=== PATIENT | male | born 1970 | race Caucasian/White ===

== ENCOUNTER 2019-05-28 11:51 | Inpatient (IN) | payer BC ==
[2019-05-28] VITALS (19 sets, daily range): BP systolic 75–136; BP diastolic 40–112; Ht 188 cm; Wt 85.9 kg
[~2019-05-28] VITALS: Ht 188 cm; Wt 85.9 kg
[2019-05-28 12:32] LABS: UDS - AMPHET NEGATIVE QUAL (NEGATIVE); UDS - BARB NEGATIVE QUAL (NEGATIVE); UDS - BENZO NEGATIVE QUAL (NEGATIVE); UDS - COCAINE NEGATIVE QUAL (NEGATIVE); UDS - OPIATE NEGATIVE QUAL (NEGATIVE); UDS - PCP NEGATIVE QUAL (NEGATIVE); UDS - THC NEGATIVE QUAL (NEGATIVE)
[2019-05-28 12:38] LABS: BASOPHILS 0.1 % (0-2); EOSINOPHILS 0 % (0-7); HEMATOCRIT 38.8 % (42.0-54.0); HEMOGLOBIN 11.9 g/dL (13.5-17.5); IMMATURE GRANULOCYTES 2.2 % (0-5); LYMPHOCYTES 8.7 % (15-50); MCH 29.8 pg (26.0-34.0); MCHC 30.7 g/dL (31.0-37.0); MCV 97.2 fL (80.0-100.0); MEAN PLATELET VOLUME 8.8 fL (7.4-10.4); MONOCYTES 5.7 % (2-11); NEUTROPHILS 83.3 % (40-80); PLATELET COUNT 207 10x3/uL (130-400); RBC 3.99 10x6/uL (4.20-6.10); RDW 12.8 % (11.5-14.5); WBC 9.1 10x3/uL (4.8-10.8)
[2019-05-28 12:44] LABS: INR 1.65 (0.85-1.17); PROTIME 18.9 SECONDS (11.6-15.0)
[2019-05-28 12:45] LABS: APTT 39.7 SECONDS (22.8-39.4)
[2019-05-28 13:04] LABS: ALBUMIN 2.1 g/dL (3.4-5.0); ALKALINE PHOSPHATASE 58 U/L (46-116); ALT (SGPT) 991 U/L (10-68); CALC OSMOLALITY 275 mosm/kg (275-300); CARBON DIOXIDE 26.1 mmol/L (21.0-32.0); CHLORIDE - SERUM 104 mmol/L (98-107); CKMB 15.1 U/L (0.0-3.6); CREATINE KINASE 344 UL (21-232); GLUCOSE 151 mg/dL (74-106); MAGNESIUM - SERUM 1.9 mg/dL (1.8-2.4); POTASSIUM - SERUM 3.8 mmol/L (3.5-5.1); PROTEIN - SERUM 4.4 g/dL (6.4-8.2); SODIUM 137 mmol/L (136-145); UREA NITROGEN 11 mg/dL (7-18); eGFR NON AFRICAN AMERICAN 84 mL/min (90-120)
[2019-05-28 13:08] LABS: CALCIUM 5.8 mg/dL (8.5-10.1); TROPONIN-I 0.544 ng/mL (0.000-0.060)
--- NOTE | 2019-05-28 13:09 | NUR ---
GET FROM LAB CALLED WITH CRITICAL CALCIUM 5.8, TRIPONIN 0.544, DR. BERGMAN AWARE.
--- NOTE | 2019-05-28 14:27 | NUR ---
BLADDER TEMP PER URINARY CATHETER READING 94.2. PER ADMITTING MD. DR HEALY, NO MEASURES TO INCREASE BODY TEMP AT THIS TIME.
--- NOTE | 2019-05-28 14:28 | NUR ---
PT LYING IN BED, NO SIGNS OF DISTRESS. INTUBATED WITH VENTILATOR IN PLACE. IVS INFUSING ORDERED. PT DOES NOT RESPOND TO PAINFUL STIMULI. PUPILS FIXED AT 6MM, NOT REACTIVE TO LIGHT. SIDE RAILS RAISED X2, FAMILY AT BEDSIDE. WILL CONTINUE TO MONITOR.
[2019-05-28] MEDS ORDERED: NEURONTIN600 MG PO (14:56)
[2019-05-28] MEDS ORDERED: COREG 3.1253.125 MG PO (14:56)
[2019-05-28] MEDS ORDERED: ANDROGEL5 GM TP (14:57)
--- NOTE | 2019-05-28 16:30 | NUR ---
UNABLE TO OBTAIN HISTORY. PATIENT IS UNRESPONSIVE.
--- NOTE | 2019-05-28 16:33 | NUR ---
FAMILY AT BEDSIDE. FAMILY STATED THEY WERE GOING TO GO [facility] BUT NEVER GOT ANYTHING STARTED. COMPOUNDER HELPER AT BEDSIDE.
--- NOTE | 2019-05-28 17:46 | NUR ---
SPBRUNILDA WITH LEE ANN
--- NOTE | 2019-05-28 17:59 | NUR ---
pt was extubated
--- NOTE | 2019-05-28 18:09 | MORECARE ---
CASE MANAGEMENT DISCHARGE SUMMARY PATIENT: HEBER CERVANTES UNIT: [id number] ADM DATE: 05/28/19 AGE: 49 : 70 SEX: M ROOM/BED: D.2310 AUTHOR: VICTOR HUGO,DOC PHYSICIAN: REFERRING PHYSICIAN: LISA HEALY MD DATE OF SERVICE: 05/28/19 Discharge Plan Patient Name: HEBER CERVANTES Facility: [facility]:[place] : 1970 Planned Disposition: Home Anticipated Discharge Date: 05/31/19 Discharge Date: Expected LOS: 3 Initial Reviewer: [email or web address] Initial Review Date: 05/28/2019 Generated: 05/28/19 7:08 pm DCP- Discharge Planning Updated by [email or web address]: Fara Og on 05/28/19 5:[address] DC PLAN: To be determined. ANTICIPATED DC NEEDS: Hospice CM met with patient, his , Trista and his son, Paul to complete initial dc planning assessment. CM educated them on the CM role and verbal consent given by patient to complete assessment. CM verified patient's address, phone number, and emergency contact phone numbers. Patient lives at home with his . He was diagnosed with ALS 2 years ago. He saw his neurologist on 04/26/19 who talked with them about hospice. They had agreed to hospice services but they had not been arranged prior to admission. Results of further testing will determine next steps for dc planning. CM will continue to follow and will assist as needed with dc plans/needs. Fara Og RN, [facility] DCPIA - Discharge Planning Initial Assessment Updated by [email or web address]: Fara Og on 05/28/19 6:03 pm * Is the patient Alert and Oriented? No * How many steps to enter\exit or inside your home? None * PCP Dr. Herzog * [facility] * Preadmission Environment Home with Family * ADLs Partial Dependent * Equipment Cane Rolling Walker * List name and contact numbers for known caregivers / representatives who currently or will assist patient after discharge: Trista Cervantes - - [phone] Paul Ren son - [phone] * Verbal permission to speak to the caregivers and representatives has been obtained from the patient. Yes * Community resources currently utilized None * Additional services required to return to the preadmission environment? Yes * Has this patient been hospitalized within the prior 30 days at any hospital? No Patient Name: HEBER CERVANTES Page 30006 at 1809 All edits/amendments must be made on the electronic document DICTATION DATE: 05/28/191807 JET SKI MECHANIC: MARIAN 05/28/191807 RPT#: [id number] DC DATE: STATUS: ADM IN [facility] [address] [place] [address] END OF REPORT
--- NOTE | 2019-05-28 18:13 | NUR ---
civil engineering design draftsperson office called. they will call me back
--- NOTE | 2019-05-28 18:17 | NUR ---
SPOKE WITH BLAINE WILLIAM
--- NOTE | 2019-05-28 18:22 | NUR ---
GREENHOUSE WORKER STATED HE WOULD DO AN INVESTIGATION AND THEN RELEASE AND WOULD CALL ME BACK
--- NOTE | 2019-05-28 18:23 | NUR ---
FAMILY MEMBER WHEELED TO L&D BY BED SHE IS 23 WEEKS
--- NOTE | 2019-05-28 18:39 | NUR ---
REPORT FROM CHEIKH VICK MEMBER IS OK
--- NOTE | 2019-05-28 18:39 | NUR ---
SPOKE WITH HOME. WILL PAGE PROFILING MACHINE OPERATOR DISPATCH TO COME BLUEPRINTER BODY
--- NOTE | 2019-05-28 18:40 | NUR ---
LEE ANN STATED THEY WILL GET INTOUCH WITH HOME ABOUT TISSUE DONATION
--- NOTE | 2019-05-28 19:18 | NUR ---
fineral home at bedside. patient taken via stretcher
--- NOTE | 2019-05-28 19:57 | MORECARE ---
CASE MANAGEMENT DISCHARGE SUMMARY PATIENT: HEBER CERVANTES UNIT: [id number] ADM DATE: 05/28/19 AGE: 49 : 70 SEX: M ROOM/BED: D.2310 AUTHOR: VICTOR HUGO,DOC PHYSICIAN: REFERRING PHYSICIAN: LISA HEALY MD DATE OF SERVICE: 05/28/19 Discharge Plan Patient Name: HEBER CERVANTES Facility: [facility]:[place] : 1970 Planned Disposition: Home Anticipated Discharge Date: 05/31/19 Discharge Date: 05/28/2019 Expected LOS: 3 Initial Reviewer: [email or web address] Initial Review Date: 05/28/2019 Generated: 05/28/19 8:57 pm DCP- Discharge Planning Updated by [email or web address]: Fara Og on 05/28/19 5:[address] DC PLAN: To be determined. ANTICIPATED DC NEEDS: Hospice CM met with patient, his , Trista and his son, Paul to complete initial dc planning assessment. CM educated them on the CM role and verbal consent given by patient to complete assessment. CM verified patient's address, phone number, and emergency contact phone numbers. Patient lives at home with his . He was diagnosed with ALS 2 years ago. He saw his neurologist on 04/26/19 who talked with them about hospice. They had agreed to hospice services but they had not been arranged prior to admission. Results of further testing will determine next steps for dc planning. CM will continue to follow and will assist as needed with dc plans/needs. Fara Og RN, [facility] DCPIA - Discharge Planning Initial Assessment Updated by [email or web address]: Fara Og on 05/28/19 6:03 pm * Is the patient Alert and Oriented? No * How many steps to enter\exit or inside your home? None * PCP Dr. Herzog * [facility] * Preadmission Environment Home with Family * ADLs Partial Dependent * Equipment Cane Rolling Walker * List name and contact numbers for known caregivers / representatives who currently or will assist patient after discharge: Trista Cervantes - - [phone] Paul Ren son - [phone] * Verbal permission to speak to the caregivers and representatives has been obtained from the patient. Yes * Community resources currently utilized None * Additional services required to return to the preadmission environment? Yes * Has this patient been hospitalized within the prior 30 days at any hospital? No Last DP export: 05/28/19 5:09 p Patient Name: HEBER CERVANTES Page [id number] at 1956 All edits/amendments must be made on the electronic document DICTATION DATE: 05/28/191956 TRANSPORTATION DRIVER: MARIAN 05/28/191956 RPT#: [id number] DC DATE:05/28/19 STATUS: DIS IN [facility] [address] [place] [address] END OF REPORT
== END 2019-05-28 19:34 | DRG 296 ==
LOC: D.ER 11:51 → D.ICU 14:23 → OBSVTIME 14:23 → D.ICU 16:31
PROVIDERS: Family Medicine; ADMIT Internal Medicine Nephrology; ATTEND Internal Medicine Nephrology
PROC: 5A1935Z Respiratory Ventilation, Less than 24 Consecutive Hours (ICD-10-PCS; principal; 2019-05-28)
PROC: 0BH17EZ Insertion of Endotracheal Airway into Trachea, Via Natural or Artificial Opening (ICD-10-PCS; 2019-05-28)
DX: I46.9 Cardiac arrest, cause unspecified (principal); G93.6 Cerebral edema; J18.9 Pneumonia, unspecified organism; K72.00 Acute and subacute hepatic failure without coma; G93.1 Anoxic brain damage, not elsewhere classified; G12.21 Amyotrophic lateral sclerosis; R57.9 Shock, unspecified; I95.9 Hypotension, unspecified